=== PATIENT | male | born 1975 | race African-American/Black ===

== ENCOUNTER 2017-08-06 15:38 | Emergency (ER) | payer OTHER ==
[~2017-08-06] VITALS: Ht 182.9 cm; Wt 77.1 kg
[2017-08-06 15:44] VITALS: BP 170/99
[2017-08-06] MEDS ORDERED: Haloperidol 5mg/ml Inj IM ONE (15:45)
[2017-08-06] MEDS ORDERED: DiphenhydrAMINE 50mg/ml Inj IM ONE (15:45)
[2017-08-06] MEDS ORDERED: LORazepam 1mg tab ORAL ONE (15:45)
[2017-08-06] MEDS ORDERED: LORazepam Inj 2mg/ml 1ml IM ONE (16:00)
[2017-08-06 16:53] LABS: BASOPHILS % (AUTO) 1.9 % (0.0-2.0); EOSINOPHILS % (AUTO) 1.7 % (0.0-3.0); LYMPHOCYTES % (AUTO) 41.1 % (20.0-45.0); MEAN CORPUSCULAR HGB CONC 32.3 G/DL (32.0-36.0); MEAN CORPUSCULAR VOLUME 96 FL (80-99); MEAN PLATELET VOLUME 4.6 FL (6.5-10.1); MONOCYTES % (AUTO) 9.4 % (1.0-10.0); NEUTROPHILS % (AUTO) 45.8 % (45.0-75.0); PLATELET COUNT 308 K/UL (150-450); RED BLOOD COUNT 4.37 M/UL (4.70-6.10); RED CELL DISTRIBUTION WIDTH 11.2 % (11.6-14.8); WHITE BLOOD COUNT 5.2 K/UL (4.8-10.8)
[2017-08-06 17:06] LABS: ANION GAP 12 mmol/L (5-15); CALCIUM 9.2 MG/DL (8.5-10.1); CARBON DIOXIDE 25 MMOL/L (21-32); CHLORIDE 101 MMOL/L (98-107); GLOMERULAR FILTRATION RATE > 60 mL/min (>60); POTASSIUM 3.2 MMOL/L (3.5-5.1); SODIUM 138 MMOL/L (136-145)
[2017-08-06 17:08] LABS: ACETAMINOPHEN < 10 MCG/ML (10-30); ALANINE AMINOTRANSFERASE 22 U/L (12-78); ALBUMIN/GLOBULIN RATIO 0.9 (1.0-2.7); ALCOHOL 59 mg/dL; ASPARTATE AMINO TRANSFERASE 23 U/L (15-37); TOTAL PROTEIN 8.3 G/DL (6.4-8.2)
[2017-08-06 21:34] VITALS: BP 161/87
--- NOTE | 2017-08-06 21:44 | Emergency Room Report ---
History of Present Illness General Chief Complaint: Behavioral Complaint Source: Patient, EMS Present Illness HPI The patient is a 42-year-old male brought in by ambulance and is in custody for bizarre behavior. He was said to be running around in the street. He stated that his history of PTSD and depression. He admitted to using alcohol but denies anything else. He is uncooperative and does not provide any more information Allergies: Coded Allergies: No Known Allergies (Unverified , 08/06/17) Patient History Past Medical History: see triage record Pertinent Family History: none Reviewed Nursing Documentation: PMH: Agreed, PSxH: Agreed Nursing Documentation-PMH Hx Hypertension: Yes Review of Systems All Other Systems: limited Physical Exam Vital Signs Date Time Temp Pulse Resp B/P (MAP) Pulse Ox O2 Delivery O2 Flow Rate FiO2 08/06/17 15:34 98.8 103 19 170/99 99 Room Air Sp02 EP Interpretation: reviewed, normal General Appearance: no apparent distress, alert, GCS 15, non-toxic Head: normocephalic, atraumatic Eyes: bilateral eye normal inspection, bilateral eye PERRL ENT: hearing grossly normal, normal pharynx, no angioedema, normal voice Cardiovascular #1: no murmur, no rub, tachycardia Gastrointestinal: normal bowel sounds, non tender, soft, non-distended, no guarding, no rebound Musculoskeletal: back normal, gait/station normal, normal range of motion, non- tender Neurologic: alert, responsive, motor strength/tone normal, sensory intact, other - rapid speech and fast movements Psychiatric: no suicidal/homicidal ideation, anxious Skin: normal color, no rash, warm/dry, well hydrated Medical Decision Making PA Attestation Dr. Lovelace is my supervising physician. Patient management was discussed with my supervising physician Diagnostic Impression: Primary Impression: Polydrug abuse Additional Impression: Behavioral disorder ER Course The patient is a 42-year-old male brought in by ambulance and is in custody for bizarre behavior. Differential diagnoses considered but not limited to drug use, psychosis, SI, among others PE: tachycardia. Afebrile. NAD Pt is alert but appears somewhat agitated. He is exhibiting rapid movements and fast speech with flight of thoughts No murmurs rubs or gallops. lungs clear to auscultation laterally Skin warm and dry UDS + for amphetamines, cocaine, and THC. Blood alcohol somewhat elevated He is given IM medication and is now resting comfortably. I am able to wake him with name and touch. He appears more calm. He will be signed out to Dr. Lovelace. He is stable at this time. Laboratory Tests Test 08/06/17 16:20 White Blood Count 5.2 K/UL (4.8-10.8) Red Blood Count 4.37 M/UL (4.70-6.10) L Hemoglobin 13.6 G/DL (14.2-18.0) L Hematocrit 41.9 % (42.0-52.0) L Mean Corpuscular Volume 96 FL (80-99) Mean Corpuscular Hemoglobin 31.0 PG (27.0-31.0) Mean Corpuscular Hemoglobin Concent 32.3 G/DL (32.0-36.0) Red Cell Distribution Width 11.2 % (11.6-14.8) L Platelet Count 308 K/UL (150-450) Mean Platelet Volume 4.6 FL (6.5-10.1) L Neutrophils (%) (Auto) 45.8 % (45.0-75.0) Lymphocytes (%) (Auto) 41.1 % (20.0-45.0) Monocytes (%) (Auto) 9.4 % (1.0-10.0) Eosinophils (%) (Auto) 1.7 % (0.0-3.0) Basophils (%) (Auto) 1.9 % (0.0-2.0) Sodium Level 138 MMOL/L (136-145) Potassium Level 3.2 MMOL/L (3.5-5.1) L Chloride Level 101 MMOL/L (98-107) Carbon Dioxide Level 25 MMOL/L (21-32) Anion Gap 12 mmol/L (5-15) Blood Urea Nitrogen 21 mg/dL (7-18) H Creatinine 1.0 MG/DL (0.55-1.30) Estimate Glomerular Filtration Rate > 60 mL/min (>60) Glucose Level 72 MG/DL (74-106) L Calcium Level 9.2 MG/DL (8.5-10.1) Total Bilirubin 0.6 MG/DL (0.2-1.0) Aspartate Amino Transferase (AST) 23 U/L (15-37) Alanine Aminotransferase (ALT) 22 U/L (12-78) Alkaline Phosphatase 107 U/L (46-116) Total Protein 8.3 G/DL (6.4-8.2) H Albumin 3.9 G/DL (3.4-5.0) Globulin 4.4 g/dL Albumin/Globulin Ratio 0.9 (1.0-2.7) L Salicylates Level 1.3 ug/mL (2.8-20) L Urine Opiates Screen Negative (NEGATIVE) Acetaminophen Level < 10 MCG/ML (10-30) L Urine Barbiturates Screen Negative (NEGATIVE) Phencyclidine (PCP) Screen Negative (NEGATIVE) Urine Amphetamines Screen Positive (NEGATIVE) H Urine Benzodiazepines Screen Negative (NEGATIVE) Urine Cocaine Screen Positive (NEGATIVE) H Urine Marijuana (THC) Screen Positive (NEGATIVE) H Serum Alcohol 59 mg/dL Lab Results Impression UDS + for amphetamines, cocaine, and THC. Blood alcohol somewhat elevated Last Vital Signs Date Time Temp Pulse Resp B/P (MAP) Pulse Ox O2 Delivery O2 Flow Rate FiO2 08/06/17 15:44 98.8 103 19 170/99 99 Room Air Status: improved Disposition: HOME, SELF-CARE Condition: Improved Signed Out To: Dr. Andrews Scripts Unable to Obtain Active Prescriptions or Reported Meds Referrals: NOT CHOSEN IPA/,REFERRING (PCP) OSCAR PARKER Aug 06, 2017 21:44
[2017-08-07 02:08] VITALS: BP 168/85
[2017-08-07 05:34] VITALS: BP 162/86
[2017-08-07 05:35] VITALS: BP 162/86
== END 2017-08-07 05:40 | disposition home or self-care (01) ==
LOC: EDBD 15:38 → EMR 16:04
DX: F19.10 Other psychoactive substance abuse, uncomplicated (principal); F91.9 Conduct disorder, unspecified; I10 Essential (primary) hypertension
CPT/HCPCS: 36415; 80053; 80307; 80329; 85025; 96372; 99283; J1200; J1630